=== PATIENT | female | born 1980 | race Caucasian/White ===

== ENCOUNTER 2020-03-28 11:18 | Emergency (ER) | payer OTHER ==
[~2020-03-28 11:18] MED LIST: AUGMENTIN 875-1 EACH PO; IMITREX50 MG PO; KEPPRA500 MG PO
[2020-03-28] MEDS ORDERED: NORCO 5-325 TA1 EACH PO (12:17)
[2020-03-28] MEDS ORDERED: MEDROL 4MG DOSEP4 MG PO (12:17)
[2020-03-28] MEDS ORDERED: NAPROXEN500 MG PO (12:17)
== END 2020-03-28 12:28 | disposition home or self-care (01) ==
LOC: FER 11:18
DX: M54.41 Lumbago with sciatica, right side (principal)
CPT/HCPCS: 99283